=== PATIENT | male | born 1955 | race Caucasian/White ===

== ENCOUNTER → 2020-07-19 14:22 | Outpatient (BNVA) | payer MEDICARE, OTHER, SELFPAY | PROVIDERS: PCP Nurse Practitioner Family; Visit Provider Internal Medicine | DX: L40.50 Arthropathic psoriasis, unspecified (principal); Z79.899 Other long term (current) drug therapy; Z11.59 Encounter for screening for other viral diseases; Z11.1 Encounter for screening for respiratory tuberculosis; D86.9 Sarcoidosis, unspecified; M32.9 Systemic lupus erythematosus, unspecified; M10.9 Gout, unspecified; F17.210 Nicotine dependence, cigarettes, uncomplicated | CPT/HCPCS: 36415; 80053; 84550; 85007; 85025; 85651; 86140; 86480; 86704; 86803; 87340; 99203 ==

== ENCOUNTER 2020-07-24 11:18 | Outpatient (CLI) | payer MEDICARE, OTHER, SELFPAY ==
--- NOTE | 2020-07-24 11:30 | XR_ITS ---
WS: [id number] RIGHT HAND: 2 VIEW(S) TECHNIQUE: PA and lateral. HISTORY: Joint pain. COMPARISON: None available. No acute fracture or dislocation. No soft tissue or bone abnormality. XR/XR hand RT 2V [id number] IMPRESSION: Normal RIGHT hand.
--- NOTE | 2020-07-24 11:30 | XR_ITS ---
WS: [id number] LEFT HAND: 2 VIEW(S) TECHNIQUE: PA and lateral. HISTORY: Joint pain. COMPARISON: None available. No acute fracture or dislocation. No soft tissue or bone abnormality. No periostitis. Dense foreign body adjacent to the proximal first metacarpal. XR/XR hand LT 2V [id number] IMPRESSION: Normal LEFT hand.
--- NOTE | 2020-07-24 11:30 | XR_ITS ---
WS: [id number] RIGHT FOOT: 2 VIEW(S) TECHNIQUE: AP and lateral. HISTORY: Joint pain. COMPARISON: None available. No acute fracture or dislocation. Normal tarsal/metatarsal alignment. Very minimal subchondral cystic changes involving the first metatarsal head. XR/XR foot RT 2V [id number] IMPRESSION: Mild degenerative changes of osteoarthritis at the first metatarsal head.
--- NOTE | 2020-07-24 11:30 | XR_ITS ---
WS: [id number] LEFT FOOT: 2 VIEW(S) TECHNIQUE: AP and lateral. HISTORY: Joint pain. COMPARISON: None available. Moderate degenerative changes at the first metatarsophalangeal joint. The toes are excluded on the la teral radiograph. Normal tarsal/metatarsal alignment. No soft tissue abnormality or bone destruction. XR/XR foot LT 2V [id number] IMPRESSION: Moderate osteoarthritis at the first metatarsophalangeal joint.
--- NOTE | 2020-07-24 11:30 | XR_ITS ---
WS: [id number] Bilateral hips. HISTORY: Joint Pain. Very minimal narrowing of the hip joints and sclerosis along the superior acetabulum. No fractures or dislocations. No bone destruction. XR/XR hip BI 3-4V wo/w pel [id number] IMPRESSION: Mild bilateral hip joint arthritis.
== END 2020-07-24 11:19 | disposition home or self-care (01) ==
LOC: RAD 11:27
PROVIDERS: PCP Nurse Practitioner Family; Visit Provider Internal Medicine
DX: M25.541 Pain in joints of right hand (principal); M25.542 Pain in joints of left hand; M19.072 Primary osteoarthritis, left ankle and foot; M19.071 Primary osteoarthritis, right ankle and foot; M16.0 Bilateral primary osteoarthritis of hip
CPT/HCPCS: 73120; 73522; 73620

== ENCOUNTER 2020-10-23 13:02 | Outpatient (CLI) | payer MEDICARE, OTHER, SELFPAY ==
[2020-10-23 14:38] LABS: Basophils % 0.3 %; Eosinophils % 0.4 %; Hematocrit 50.7 % (42.0-52.0); Hemoglobin 17.1 g/dL (11.7-16.6); Lymphocytes # 1.3 10^3/uL (0.8-4.8); Lymphocytes % 13.7 %; Mean Corpuscular HGB Conc 33.7 g/dL (30.0-36.0); Mean Corpuscular Hemoglobin 30.7 pg (28.0-34.0); Mean Platelet Volume 11.5 fL (7.4-10.4); Monocytes # 0.6 10^3/uL (0.2-0.9); Monocytes % 5.7 %; Neutrophils # 7.76 10^3/uL (1.8-7.7); Neutrophils % 79.3 %; Nucleated Red Blood Cells % 0 %; Platelet Count 171 10^3/cmm (130-400); Red Blood Count 5.57 10^6/uL (4.1-5.3); Red Cell Distribution Width 13.3 % (12.1-15.1); White Blood Count 9.8 10^3/uL (4.0-10.0)
[2020-10-23 15:05] LABS: Alanine Aminotransferase 34 U/L (0-41); Albumin Level 4.2 g/dL (3.5-5.2); Alkaline Phosphatase 68 IU/L (40-130); Blood Urea Nitrogen 14 mg/dL (8-23); Calcium 9.7 mg/dL (8.5-10.5); Carbon Dioxide 27 mmol/L (22-29); Chloride 103 mmol/L (98-107); Globulin 3.1 g/dL (1.3-4.6); Glomerular Filtration Rate 74.5 mL/min (90-130); Glucose 118 mg/dL (65-115); Osmolality Calculated 290 mOsm/kg (285-295); Sodium 139 mmol/L (136-145); Total Bilirubin 0.3 mg/dL (0.15-1.2); Total Protein 7.3 g/dL (6.6-8.7)
[2020-10-23 15:21] LABS: Anion Gap 13.2 (5-19); Aspartate Amino Transferase 26 U/L (0-40); Lactate Dehydrogenase 206 U/L (135-225); Potassium 4.2 mmol/L (3.5-5.1)
[2020-10-23 15:50] LABS: LAB Peripheral Smear Sent for Review
--- NOTE | 2020-10-23 18:21 | ONC CON_ITS ---
Dr. Sheikh New Patient Note Patient: Esvin Hazel Unit #: [id number]: 1955 Dicatated By: Chon Sheikh M.D.Date of Visit: Oct 23, 2020 Onc MED New Patient/Consult Referring Physician: Lupe Wagoner Chief Complaint: Abnormal CBC. History of Present Illness: This is a 65-year-old man with psoriatic arthritis. I am asked to see him in regard to an abnormal CBC. He has longstanding psoriatic arthritis. Has been on multiple therapies over the years including Humira, Cosentyx, and Otezla. He currently has been doing self injections of ixekizumab every 4 weeks. He also has gout and he has degenerative disease of the spine. He has had previous lumbar laminectomy in 2003 and cervical laminectomy in 2004. He has a spinal cord stimulator in place. He had his initial rheumatology consultation with Dr. Wagoner on 07/19/2020. His laboratory studies at that time included CBC showing hemoglobin 16.2 g had hematocrit 49.3%. The white blood cell count was 9000. The reported differential included 38% segs, 2% bands, 47% lymphocytes, 3% atypical lymphs, 9% monocytes, and 1% eosinophils. He was reported to have 2+ smudge cells. Sed rate was normal at 7 mm/hour, and the C-reactive protein was normal 2.9 mg/L. Comprehensive metabolic profile was unremarkable. He has been feeling pretty good generally. He does have limited activity, mainly due to his chronic pain. His ECOG score is 1. He has good appetite. His weight recently has been down a little. He does not have fever or night sweats. He has sinus drainage, has just occasional cough. He does not complain of shortness of breath or chest pain. He was having diarrhea. His bowels now are getting better, though not yet completely back to normal. He has no complaints. He has chronic pain in his neck and lower back, and he also has generalized joint pain. Overall, it has improved significantly with treatment. He does not complain of headache. For the past several years he has had numbness in his right leg. He has no other focal neurologic symptoms. Past Medical History: His medical history includes degenerative disease of the spine, gout, hypertension, and psoriatic arthritis. Past Surgical History: His surgical/procedural history includes appendectomy, placement of implantable spinal cord stimulator, cervical laminectomy in 2004, and lumbar laminectomy in 2003. Medications: Daily Vitamin 1 Tablet Oral daily, Lisinopril 1 (40 mg) Tablet Oral daily, Pantoprazole Sodium 1 (40 mg) Tablet, enteric coated Oral daily, Taltz (80 mg/mL) Subcutaneous Take as Directed Allergies: No Known Allergies. Social History: Mr. Hazel is single. He is a daily smoker. He drinks occasionally. He had previously smoked cigarettes, estimated at 30 years of smoking over a 50-year period, maximum 1-1/2 packs of cigarettes daily. He currently he smokes 2 to 3 cigars/day. He had heavy alcohol use in the past, but he quit drinking many years ago. Family History: Both parents with heart disease, father at age 77 and mother at age 69. One brother and 4 sisters are in good health. Review Of Symptoms: Constitutional - He has pretty good energy, but he does have limited activity tolerance. Appetite is good. His weight recently has been down a little. He has no fever or night sweats. ECOG score is 1, Eyes - No change in vision, ENMT - No hearing loss, but he does have tinnitus. He always has sinus drainage. No mouth sores. No sore throat or difficulty swallowing, Hematologic/Lymphatic - No abnormal bruising or bleeding, Respiratory - No shortness of breath. He has just occasional cough. No pleuritic pain or hemoptysis, Cardiovascular - No angina pain. No palpitations, Gastrointestinal - No nausea or vomiting. He very seldom has acid reflux. He was having diarrhea. It is not yet completely back to normal, but it is getting better. No blood in the stool or black stools, Genitourinary (M) - No dysuria or hematuria. No urinary frequency. No urgency or incontinence, Musculoskeletal - He has chronic pain in his neck and lower back. He also has fairly generalized joint pain, Integumentary - The skin manifestations of his psoriasis have been well controlled on the medication, Neurologic - No headache. He has orthostatic lightheadedness if he gets up too fast. For the past several years he has had numbness in his right leg. No other focal neurologic symptoms, Psychiatric - No anxiety. He occasionally has depression. No insomnia. Vital Signs: Performed on Oct 23, 2020 13:41: 3, 33.26 (HIGH), 2.22 sq.m, 70 in, 95 % (LOW), 77 /min, 18 /min, 154/91 mm(hg) (HIGH), 98.6 F, and 231.8 lbs (HIGH). Physical Examination: Constitutional - He appears to be in good general health, Eyes - Sclerae nonicteric. Conjunctivae clear, ENMT - No lesions noted in the oral cavity, Neck - No mass or thyromegaly, Hematologic/Lymphatic - No cervical, clavicular, or axillary adenopathy, Respiratory - Lungs are clear with good air movement bilaterally, Cardiovascular - Heart rhythm is regular. There is no murmur, gallop, or rub noted, Abdomen - Soft and non-tender. Liver and spleen are not enlarged. There is no abdominal mass or ascites noted and there is no inguinal adenopathy, Extremities - No edema. He has good dorsalis pedis pulses bilaterally, Integumentary - No suspicious skin lesions noted, Neurologic - No focal neurologic deficits noted. Historic Problem List: 1. Longstanding psoriatic arthritis. 2. Degenerative disease of the spine. 3. Gout. 4. Hypertension. 5. GERD. Problems Addressed with this Encounter and Plan: Abnormal CBC with differential reporting atypical lymphocytes and smudge cells. With underlying psoriatic arthritis and immunosuppressive therapy, there is concern for a developing lymphoproliferative disorder. The CBC findings were reviewed with the patient and we discussed the clinic complications. He will have additional laboratory studies today to include CBC, comprehensive metabolic profile, and LDH level. I will review the blood smear. He then will have further evaluation including whole blood flow cytometry and/or bone marrow aspiration/biopsy, as indicated. Signed By: Chon Sheikh M.D. <<Signature on File>>
== END 2020-10-23 13:03 | disposition home or self-care (01) ==
LOC: ONCMED 13:09
PROVIDERS: Internal Medicine Medical Oncology; Visit Provider Internal Medicine Hematology & Oncology
DX: R79.89 Other specified abnormal findings of blood chemistry (principal); L40.50 Arthropathic psoriasis, unspecified; M48.9 Spondylopathy, unspecified; I10 Essential (primary) hypertension; K21.9 Gastro-esophageal reflux disease without esophagitis; F17.210 Nicotine dependence, cigarettes, uncomplicated; Z79.899 Other long term (current) drug therapy
CPT/HCPCS: 36415; 80053; 83615; 85025; 99204

== ENCOUNTER 2021-02-14 09:32 | Outpatient (CLI) | payer MEDICARE, OTHER, SELFPAY ==
[2021-02-14 09:57] VITALS: BMI 31.4
--- NOTE | 2021-02-14 09:57 | ECG_ITS ---
Test Date: 2021-02-14 Pat Name: Esvin Hazel Department: Room: Gender: Male [employer]: : 1955 Requested By: Licha Rader Order Number: [id number] Billie MD: Licha Rader M.D. Interpretive Statements NAME OF STUDY: LEXISCAN SESTAMIBI STRESS TEST INDICATION: Right bundle branch block, CAD PROCEDURE: At the baseline, the blood pressure was 141/78 mmHg, oxygen saturation 98% with a heart rate of 67 bpm. The electrocardiogram showed normal sinus rhythm, normal axis. Right bundle branch block. The Lexiscan was infused over a period of 20 seconds. A total of 0.4 milligrams of Lexiscan was infused. The stress phase was continued for a total of 5 minutes. Heart rate at the end of the stress phase was 88 bpm, oxygen saturation 98% with a blood pressure of 142/81 mmHg. The EKG at the peak infusion revealed sinus rhythm with no significant ST-T wave changes. Sestamibi was injected 20 seconds after the Lexiscan infusion. Blood pressure at the end of the recovery phase was 159/82 mmHg, oxygen saturation 97% with a heart rate of 91 beats per minute. CONCLUSION: 1. No significant EKG changes with the LexiScan infusion. 2. No LexiScan induced chest pain or cardiac arrhythmia. 3. Normal blood pressure and heart rate response. 4. Sestamibi/sestamibi perfusion scan pending; see separate report. Electronically Signed On 02-16-2021 13:40:16 CDT by Licha Rader M.D. [id number]
--- NOTE | 2021-02-14 09:57 | NMCV_ITS ---
NM michel perf SPECT r/s* [id number] Esvin Hazel Age: 65 Gender: M : 1955 Exam Date: 02/14/2021 10:49 Ordering Phys: Licha Rader MD ([email or web address]) Technologist: KERRIE Dixon Exam Location: [facility] Indications: RIGHT BUNDLE BRANCH BLOCK STRESS TEST [facility] IMAGE PROTOCOL Rest/Stress 1 Lexiscan Day Radiopharmaceutical Dose (mCi) Administration Site Administered by Rest: Tc-99m 11.0 IV KERRIE Diaz Sestamibi Stress:Tc-99m 32.2 IV KERRIE Diaz Sestamibi Rest: 14-Feb-2021 60 Discovery 630 Stress: 14-Feb-2021 30 Discovery 630 0.4mg Lexiscan. Images obtained in supine and prone position. SPECT RESULTS Technical Quality: Excellent Raw Data Analysis: Normal Image Corrections: No attenuation or motion correction applied Summed Stress Score: 0 Summed Rest Score: 2 Summed Difference Score: 0 PERFUSION FINDINGS Small sized perfusion abnormality of mild severity of mid to apical inferior and apical guo on rest images with increased tracer uptake on stress images. FUNCTIONAL RESULTS (calculated via Gated SPECT) Stress Image LV EF (%): 75 Stress EDV (mL):76 TID: 0.83 Stress ESV (mL):19 FUNCTIONAL FINDINGS: The left ventricle is normal in size. Transient Ischemia Dilatation of 0.83. There is normal left ventricular systolic function. The left ventricular ejection fraction is normal with a value of 75%. There is normal left ventricular wall thickening with no regional wall motion abnormality. Normal end-diastolic and end-systolic volumes. IMPRESSIONS 1. Small sized perfusion abnormality of mild severity of mid to apical inferior and apical guo with improved tracer uptake on stress images. 2. This likely represents attenuation artifact, however small area of old myocardial infarction in apical inferior and apical lateral guo cannot be completely ruled out. 3. Overall left ventricular systolic function is normal without regional wall motion abnormalities, LVEF=75%. 4. No significant coronary ischemia based on the study. Licha Rader MD (Electronically Signed) Final Date: 16 Feb 2021 13:17 S
[2021-02-14] MEDS: regadenoson 0.4 Mg/5 ml Syringe IVP (12:02)
[2021-02-14 12:03] VITALS: BP 159/82; PULSE 88
== END 2021-02-14 09:33 | disposition home or self-care (01) ==
LOC: CDL 09:33
PROVIDERS: Visit Provider Internal Medicine Cardiovascular Disease
DX: I45.10 Unspecified right bundle-branch block (principal); I25.10 Atherosclerotic heart disease of native coronary artery without angina pectoris
CPT/HCPCS: 78452; 93017; A9500; J2785

== ENCOUNTER → 2021-03-20 13:37 | Outpatient (BNVA) | payer MEDICARE, OTHER, SELFPAY | PROVIDERS: Visit Provider Orthopaedic Surgery | DX: M25.569 Pain in unspecified knee (principal) | CPT/HCPCS: 73560; 73565 ==

== ENCOUNTER → 2021-04-12 13:24 | Outpatient (BNVA) | payer MEDICARE, OTHER, SELFPAY | PROVIDERS: Referring Provider Orthopaedic Surgery; Visit Provider Anesthesiology Pain Medicine | DX: G89.29 Other chronic pain (principal); M25.551 Pain in right hip; M25.552 Pain in left hip; M17.11 Unilateral primary osteoarthritis, right knee; M51.16 Intervertebral disc disorders with radiculopathy, lumbar region; M96.1 Postlaminectomy syndrome, not elsewhere classified; Z79.891 Long term (current) use of opiate analgesic | CPT/HCPCS: 99205 ==

== ENCOUNTER → 2021-04-25 13:12 | Outpatient (BNVA) | payer MEDICARE, OTHER, SELFPAY | PROVIDERS: Visit Provider Anesthesiology Pain Medicine | DX: M25.551 Pain in right hip (principal) | CPT/HCPCS: 20610; 77002; J1030; J3490 ==

== ENCOUNTER → 2021-05-09 10:16 | Outpatient (BNVA) | payer MEDICARE, OTHER, SELFPAY | PROVIDERS: Visit Provider Anesthesiology Pain Medicine | DX: M51.16 Intervertebral disc disorders with radiculopathy, lumbar region (principal); M96.1 Postlaminectomy syndrome, not elsewhere classified; M25.552 Pain in left hip; M25.551 Pain in right hip; M17.11 Unilateral primary osteoarthritis, right knee; M79.659 Pain in unspecified thigh | CPT/HCPCS: 99214 ==

== ENCOUNTER 2021-05-21 15:08 | Outpatient (CLI) | payer MEDICARE, OTHER, SELFPAY ==
--- NOTE | 2021-05-21 15:30 | CT_ITS ---
WS: [id number] CT CERVICAL SPINE HISTORY: R92.8 - Other abnormal and inconclusive findings TECHNIQUE: Contiguous 2.5 mm axial imaging performed through the entire cervical spine. Sagittal and coronal reformats also performed. All CT scans at [facility] use at least one of these do se optimization techniques: automated exposure control; mA and/or kV adjustment per patient size (inc ludes targeted exams where dose is matched to clinical indication); or iterative reconstruction. DLP: 1893.71 mGy-cm. COMPARISON: None available. Straightening and reversal normal cervical lordosis. Severe degenerative disc disease with osteophyto sis and sclerosis from C4-5 through C6-7. Osteophytes extend anterior and posterior. C3 anterolisthes is by 3 mm and C4 and C5 retrolisthesis by 2 mm. No fractures. Craniocervical junction normally align ed. Lateral masses of C1 and C2 are aligned. C2-C3: Shallow central disc protrusion with moderate RIGHT facet joint hypertrophy. Moderate RIGHT fo raminal narrowing. C3-C4: Diffuse osteophytic ridging with moderate to severe RIGHT facet joint arthritis. Moderate RIGH T foraminal stenosis. C4-C5: Diffuse osteophytic ridging and mild disc bulging with bilateral facet joint arthritis. Suspec t there is a small disc protrusion in the proximal LEFT foramen. Severe LEFT and moderate RIGHT tushar inal stenosis. C5-C6: Diffuse osteophytic ridging and facet joint arthritis. Severe bilateral foraminal stenosis. C6-C7: Diffuse osteophytic ridging with mild encroachment upon the ventral thecal sac. Moderate centr al and bilateral foraminal stenosis. C7-T1: Mild LEFT foraminal stenosis. Small bilateral cervical chain lymph nodes. CT/CT cervical spin wo con* [id number] IMPRESSION: 1. Severe spondylitic changes at C4-5, C5-6 and C6-7. 2. Moderate RIGHT foraminal stenosis at C2-3 and C3-4 due to facet joint arthr itis. 3. Severe LEFT and moderate RIGHT foraminal stenosis at C4-5. Indeterminate fo r small disc protrusion on the LEFT. 4. Moderate central and bilateral foraminal stenosis at C6-7. 5. Severe bilateral foraminal stenosis at C5-6.
== END 2021-05-21 15:09 | disposition home or self-care (01) ==
PROVIDERS: Visit Provider Anesthesiology Pain Medicine
DX: M96.1 Postlaminectomy syndrome, not elsewhere classified (principal); M48.02 Spinal stenosis, cervical region
CPT/HCPCS: 72125

== ENCOUNTER → 2021-06-06 10:00 | Outpatient (BNVA) | payer MEDICARE, OTHER, SELFPAY | PROVIDERS: Visit Provider Anesthesiology Pain Medicine | DX: G89.29 Other chronic pain (principal); M47.812 Spondylosis without myelopathy or radiculopathy, cervical region; M96.1 Postlaminectomy syndrome, not elsewhere classified; M17.11 Unilateral primary osteoarthritis, right knee; M25.551 Pain in right hip; M25.552 Pain in left hip; M51.16 Intervertebral disc disorders with radiculopathy, lumbar region; M79.659 Pain in unspecified thigh; F17.210 Nicotine dependence, cigarettes, uncomplicated | CPT/HCPCS: 99214 ==

== ENCOUNTER → 2021-06-13 12:35 | Outpatient (BNVA) | payer MEDICARE, OTHER, SELFPAY | PROVIDERS: Visit Provider Anesthesiology Pain Medicine | DX: G89.29 Other chronic pain (principal); M47.812 Spondylosis without myelopathy or radiculopathy, cervical region; F17.210 Nicotine dependence, cigarettes, uncomplicated | CPT/HCPCS: 64490; 64491; 64492; J3490 ==

== ENCOUNTER → 2021-06-27 10:50 | Outpatient (BNVA) | payer MEDICARE, OTHER, SELFPAY | PROVIDERS: Visit Provider Anesthesiology Pain Medicine | DX: G89.29 Other chronic pain (principal); M47.812 Spondylosis without myelopathy or radiculopathy, cervical region; M51.16 Intervertebral disc disorders with radiculopathy, lumbar region; M96.1 Postlaminectomy syndrome, not elsewhere classified; M17.11 Unilateral primary osteoarthritis, right knee; M25.551 Pain in right hip; F17.210 Nicotine dependence, cigarettes, uncomplicated | CPT/HCPCS: 99214 ==

== ENCOUNTER → 2021-07-10 14:43 | Outpatient (BNVA) | payer MEDICARE, OTHER, SELFPAY | PROVIDERS: Visit Provider Anesthesiology Pain Medicine | DX: G89.29 Other chronic pain (principal); M47.812 Spondylosis without myelopathy or radiculopathy, cervical region; F17.290 Nicotine dependence, other tobacco product, uncomplicated | CPT/HCPCS: 64633; 64634 ==

== ENCOUNTER → 2021-07-24 10:40 | Outpatient (BNVA) | payer MEDICARE, OTHER, SELFPAY | PROVIDERS: Visit Provider Anesthesiology Pain Medicine | DX: G89.29 Other chronic pain (principal); M47.812 Spondylosis without myelopathy or radiculopathy, cervical region; M51.16 Intervertebral disc disorders with radiculopathy, lumbar region; M96.1 Postlaminectomy syndrome, not elsewhere classified; M17.11 Unilateral primary osteoarthritis, right knee; M25.551 Pain in right hip; M25.552 Pain in left hip; M79.652 Pain in left thigh; I10 Essential (primary) hypertension; F17.210 Nicotine dependence, cigarettes, uncomplicated | CPT/HCPCS: 99214 ==

== ENCOUNTER → 2021-07-30 12:49 | Outpatient (BNVA) | payer MEDICARE, OTHER, SELFPAY | PROVIDERS: Visit Provider Anesthesiology Pain Medicine | DX: G89.29 Other chronic pain (principal); M47.812 Spondylosis without myelopathy or radiculopathy, cervical region; F17.290 Nicotine dependence, other tobacco product, uncomplicated | CPT/HCPCS: 64490; 64491; 64492; J3490 ==

== ENCOUNTER 2021-08-02 11:42 | Outpatient (CLI) | payer MEDICARE, OTHER, SELFPAY ==
[2021-08-02 12:31] LABS: Basophils % 0.4 %; Eosinophils # 0.2 10^3/uL (0.0-0.8); Hemoglobin 15.6 g/dL (11.7-16.6); Lymphocytes # 1.9 10^3/uL (0.8-4.8); Lymphocytes % 23.8 %; Mean Corpuscular HGB Conc 32.5 g/dL (30.0-36.0); Mean Corpuscular Hemoglobin 30.6 pg (28.0-34.0); Mean Corpuscular Volume 94.3 fl (80-94); Mean Platelet Volume 11.1 fL (7.4-10.4); Monocytes # 0.5 10^3/uL (0.2-0.9); Monocytes % 6.1 %; Neutrophils # 5.49 10^3/uL (1.8-7.7); Neutrophils % 67.3 %; Nucleated Red Blood Cells % 0 %; Platelet Count 148 10^3/cmm (130-400); Red Blood Count 5.09 10^6/uL (4.1-5.3); Red Cell Distribution Width 13.8 % (12.1-15.1); White Blood Count 8.2 10^3/uL (4.0-10.0)
[2021-08-02 13:11] LABS: Alanine Aminotransferase 30 U/L (0-41); Alkaline Phosphatase 64 IU/L (40-130); Anion Gap 14.2 (5-19); Aspartate Amino Transferase 24 U/L (0-40); Blood Urea Nitrogen 13 mg/dL (8-23); C Reactive Protein 3.4 mg/L (0.0-4.9); Calcium 9.2 mg/dL (8.5-10.5); Carbon Dioxide 27 mmol/L (22-29); Chloride 103 mmol/L (98-107); Globulin 2.4 g/dL (1.3-4.6); Glomerular Filtration Rate 83.9 mL/min (90-130); Glucose 103 mg/dL (65-115); Osmolality Calculated 290 mOsm/kg (285-295); Potassium 4.2 mmol/L (3.5-5.1); Sodium 140 mmol/L (136-145); Total Bilirubin 0.3 mg/dL (0.15-1.2); Total Protein 6.4 g/dL (6.6-8.7)
[2021-08-03 15:54] LABS: Erythrocyte Sedimentation Rate 5 mm/hr (0-10)
== END 2021-08-02 11:43 | disposition home or self-care (01) ==
LOC: LAB 11:49
PROVIDERS: PCP Internal Medicine; Visit Provider Internal Medicine
DX: L40.50 Arthropathic psoriasis, unspecified (principal); M10.9 Gout, unspecified; M17.11 Unilateral primary osteoarthritis, right knee; M47.812 Spondylosis without myelopathy or radiculopathy, cervical region; Z79.899 Other long term (current) drug therapy
CPT/HCPCS: 80053; 85025; 85651; 86140

== ENCOUNTER → 2021-08-07 13:35 | Outpatient (BNVA) | payer MEDICARE, OTHER, SELFPAY | PROVIDERS: PCP Internal Medicine; Visit Provider Internal Medicine | DX: L40.50 Arthropathic psoriasis, unspecified (principal); M10.9 Gout, unspecified; F17.290 Nicotine dependence, other tobacco product, uncomplicated | CPT/HCPCS: 99214 ==

== ENCOUNTER → 2021-08-13 10:47 | Outpatient (BNVA) | payer MEDICARE, OTHER, SELFPAY | PROVIDERS: PCP Internal Medicine; Visit Provider Anesthesiology Pain Medicine | DX: G89.29 Other chronic pain (principal); M47.812 Spondylosis without myelopathy or radiculopathy, cervical region; M51.16 Intervertebral disc disorders with radiculopathy, lumbar region; M25.551 Pain in right hip; M25.552 Pain in left hip; M17.11 Unilateral primary osteoarthritis, right knee; M79.659 Pain in unspecified thigh | CPT/HCPCS: 99214 ==

== ENCOUNTER → 2021-08-29 13:43 | Outpatient (BNVA) | payer MEDICARE, OTHER, SELFPAY | PROVIDERS: PCP Internal Medicine; Visit Provider Anesthesiology Pain Medicine | DX: M47.812 Spondylosis without myelopathy or radiculopathy, cervical region (principal); M96.1 Postlaminectomy syndrome, not elsewhere classified; M54.50 Low back pain, unspecified | CPT/HCPCS: 64633; 64634; J1030 ==

== ENCOUNTER → 2021-09-20 10:31 | Outpatient (BNVA) | payer MEDICARE, OTHER, SELFPAY | PROVIDERS: PCP Internal Medicine; Visit Provider Anesthesiology Pain Medicine | DX: G89.29 Other chronic pain (principal); M47.812 Spondylosis without myelopathy or radiculopathy, cervical region; M96.1 Postlaminectomy syndrome, not elsewhere classified; M25.551 Pain in right hip; M25.552 Pain in left hip; M17.11 Unilateral primary osteoarthritis, right knee; M51.16 Intervertebral disc disorders with radiculopathy, lumbar region; M79.659 Pain in unspecified thigh; M19.90 Unspecified osteoarthritis, unspecified site; Z79.891 Long term (current) use of opiate analgesic | CPT/HCPCS: 99214 ==

== ENCOUNTER 2021-10-10 11:16 | Outpatient (CLI) | payer MEDICARE, OTHER, SELFPAY ==
--- NOTE | 2021-10-10 11:23 | XR_ITS ---
WS: [id number] Upright AP knees. HISTORY: Chronic knee pain. COMPARISON: 03/20/2021. Very minimal narrowing of the medial compartments of each knee. No subluxation. No osseous destructio n or osteophytosis. No significant valgus or varus deformity. [place]R/[place] [id number] IMPRESSION: Minimal medial compartment narrowing, similar to the prior study. No progressio n or significant osteoarthritis.
== END 2021-10-10 11:17 | disposition home or self-care (01) ==
PROVIDERS: PCP Internal Medicine; Visit Provider Anesthesiology Pain Medicine
DX: M25.561 Pain in right knee (principal); M25.562 Pain in left knee; G89.29 Other chronic pain
CPT/HCPCS: 73565

== ENCOUNTER → 2021-10-17 10:36 | Outpatient (BNVA) | payer MEDICARE, OTHER, SELFPAY | PROVIDERS: PCP Internal Medicine; Visit Provider Anesthesiology Pain Medicine | DX: G89.29 Other chronic pain (principal); M51.16 Intervertebral disc disorders with radiculopathy, lumbar region; M96.1 Postlaminectomy syndrome, not elsewhere classified; M47.812 Spondylosis without myelopathy or radiculopathy, cervical region; M17.11 Unilateral primary osteoarthritis, right knee; M25.551 Pain in right hip; M25.552 Pain in left hip; M19.90 Unspecified osteoarthritis, unspecified site; Z79.891 Long term (current) use of opiate analgesic | CPT/HCPCS: 99214 ==

== ENCOUNTER → 2022-01-16 12:53 | Outpatient (BNVA) | payer MEDICARE, OTHER, SELFPAY | PROVIDERS: PCP Internal Medicine; Visit Provider Internal Medicine | DX: L40.50 Arthropathic psoriasis, unspecified (principal); M10.9 Gout, unspecified; Z79.899 Other long term (current) drug therapy; F17.290 Nicotine dependence, other tobacco product, uncomplicated | CPT/HCPCS: 80053; 84550; 85025; 85651; 86140; 99214 ==

== ENCOUNTER → 2022-01-17 10:09 | Outpatient (BNVA) | payer MEDICARE, OTHER, SELFPAY | PROVIDERS: PCP Internal Medicine; Visit Provider Internal Medicine | DX: M19.041 Primary osteoarthritis, right hand (principal); M19.072 Primary osteoarthritis, left ankle and foot | CPT/HCPCS: 73120; 73600; 73620 ==

== ENCOUNTER → 2022-06-24 13:41 | Outpatient (BNVA) | payer MEDICARE, OTHER, SELFPAY | PROVIDERS: PCP Internal Medicine; Visit Provider Internal Medicine | DX: L40.50 Arthropathic psoriasis, unspecified (principal); M10.9 Gout, unspecified | CPT/HCPCS: 99214 ==

== ENCOUNTER → 2022-07-03 10:14 | Outpatient (BNVA) | payer MEDICARE, OTHER, SELFPAY | PROVIDERS: PCP Internal Medicine; Visit Provider Internal Medicine | DX: L40.50 Arthropathic psoriasis, unspecified (principal); M54.12 Radiculopathy, cervical region | CPT/HCPCS: 80053; 85025; 85651; 86140 ==

== ENCOUNTER → 2022-07-30 13:38 | Outpatient (BNVA) | payer MEDICARE, OTHER, SELFPAY | PROVIDERS: PCP Internal Medicine; Visit Provider Specialist | DX: R42 Dizziness and giddiness (principal); F17.200 Nicotine dependence, unspecified, uncomplicated; L40.50 Arthropathic psoriasis, unspecified; I25.10 Atherosclerotic heart disease of native coronary artery without angina pectoris | CPT/HCPCS: 99204; 99205 ==

== ENCOUNTER 2022-08-12 14:58 | Outpatient (CLI) | payer MEDICARE, OTHER, SELFPAY ==
--- NOTE | 2022-08-12 15:00 | CT_ITS ---
WS: [id number] CT HEAD TECHNIQUE: Noncontrast CT of the head obtained from the skullbase to the vertex. CLINICAL INFORMATION: M54.12 - Radiculopathy, cervical region COMPARISON: None. DLP: 1132.[address] scans at [facility] use at least one of these dose optimization techniques: automated e xposure control; mA and/or kV adjustment per patient size (includes targeted exams where dose is matc hed to clinical indication); or iterative reconstruction. FINDINGS: No evidence of intracranial hemorrhage or mass effect. Ventricular system and basal cisterns are neil nt. Mild small vessel changes with mild parenchymal volume loss. No extra-axial fluid collections. Pr ominent vessel in the RIGHT frontal horn periventricular white matter likely incidental venous angiom a. Mild mucosal thickening RIGHT mastoid tip. LEFT mastoid air cells are well aerated. Paranasal sinuses are well aerated. Mild mucosal thickening in the ethmoid air cells. CT/CT head wo con* [id number] IMPRESSION: 1. No evidence of intracranial hemorrhage or mass effect 2. Mild small vessel changes with mild parenchymal volume loss. 3. Prominent vessel in the RIGHT frontal horn periventricular white matter lik subhash incidental venous angioma.
--- NOTE | 2022-08-12 15:30 | CT_ITS ---
WS: [id number] CT CERVICAL SPINE TECHNIQUE: Noncontrast CT of the cervical spine with coronal and sagittal reformatted images. CLINICAL INFORMATION: M54.12 - Radiculopathy, cervical region COMPARISON: CT May 21, 2021 DLP: 375.[address] scans at [facility] use at least one of these dose optimization techniques: automated e xposure control; mA and/or kV adjustment per patient size (includes targeted exams where dose is matc hed to clinical indication); or iterative reconstruction. FINDINGS: Straightening with slight reversal normal cervical lordosis. Disc space narrowing worse at C4-C5 C5-C 6 and C6-C7 with endplate degenerative changes. Associated osteophytes. Subchondral cystic change. Al ignment is unchanged since May 31, 2021. Slight anterolisthesis C3 on C4 is unchanged. C2-C3: Mild disc osteophytic ridging. Advanced RIGHT facet arthropathy. Moderate RIGHT bony foraminal narrowing. Spinal canal is patent. C3-C4: Disc osteophyte complex with endplate ridging. Advanced RIGHT facet arthropathy. Severe RIGHT bony foraminal narrowing. LEFT foramen is patent. Spinal canal is patent. C4-C5: Disc osteophyte complex with disc space narrowing. Mild central canal stenosis. Moderate to se noemy LEFT and moderate RIGHT bony foraminal narrowing. Mild facet arthropathy. Uncovertebral joint hy pertrophy. C5-C6: Disc osteophyte complex with endplate ridging. Mild central canal stenosis. Severe LEFT and mo derate RIGHT bony foraminal narrowing. Mild central canal stenosis. Moderate facet arthropathy. C6-C7: Disc osteophyte complex with endplate ridging. Mild central canal stenosis. Mild bilateral bon y foraminal narrowing. C7-T1: No significant disc bulging. Mild LEFT and no significant RIGHT bony foraminal narrowing. Visualized posterior nasopharynx: Normal. Prevertebral soft tissues: Normal. Lung apices are well aerated. Mild mucosal thickening RIGHT mastoid air cells. LEFT mastoid air cells are well aerated. CT/CT cervical spin wo con* [id number] IMPRESSION: 1. Overall no significant changes since 2020. 2. Straightening of the normal cervical lordosis with slight reversal. Disc sp dilcia narrowing worse at C4-C6 with endplate degenerative changes and hypertrophi c spurring. 3. Mild central canal stenosis C4-C5, C5-C6, and C6-C7 unchanged. 4. Moderate to severe bony foraminal narrowing worse at RIGHT C3-C4, LEFT C4-C 5, LEFT C5-C6. 5. Moderate RIGHT C2-C3 bony foraminal narrowing. Advanced facet arthropathy R IGHT C2-C3 and RIGHT C3-C4. Mild to moderate facet arthropathy C5-C6.
== END 2022-08-12 14:59 | disposition home or self-care (01) ==
PROVIDERS: PCP Internal Medicine; Visit Provider Specialist
DX: M54.12 Radiculopathy, cervical region (principal); R42 Dizziness and giddiness; M48.02 Spinal stenosis, cervical region; M47.812 Spondylosis without myelopathy or radiculopathy, cervical region
CPT/HCPCS: 70450; 72125

== ENCOUNTER 2022-09-18 12:32 | Outpatient (CLI) | payer MEDICARE, OTHER, SELFPAY ==
--- NOTE | 2022-09-18 13:00 | USCV_ITS ---
Esvin Benítez Age: 67 Gender: M : 1955 Exam Date: 09/18/2022 12:56 Ordering Phys: Clarice Harrison MD Technologist: MARIYA Exam Location: [facility] Indication: RADICULOPATHY, CERVICAL REGION BP: 135 / 88 HR: 71 Rhythm: Sinus Technical Quality: Adequate MEASUREMENTS (Male / Female) Normal Values 2D ECHO LVOT Diameter 2.0 cm LV Ejection Fraction MOD 2C 59.3 % LV Ejection Fraction 2C AL 59.6 % LA Diameter 3.3 cm LA Width 3.5 cm LA Height 4.9 cm RA Width 3.7 cm RA Height 4.8 cm Aorta at Sinotubular Diameter 2.5 cm IVC Diameter 2.1 cm M-MODE Aortic Annulus Diameter 2.5 cm LA Ao Ratio MM 1.2 DOPPLER AV Peak Velocity 140.0 cm/s LVOT Peak Velocity 116.0 cm/s AV Area Cont Eq vti 2.7 cm squared AV Area Cont Eq pk 2.6 cm squared MV Peak Velocity 108.0 cm/s MV Area PHT 3.4 cm squared Mitral E to A Ratio 0.9 MV E' Velocity 40.0 cm/s Mitral E to MV E' Ratio 6.4 Mitral E to LV E' Lateral Ratio 6.1 Mitral E to LV E' Septal Ratio 6.7 TR Peak Velocity 186.9 cm/s TR Peak Gradient 14.0 mmHg TR Mean Velocity 145.0 cm/s TR Mean Gradient 9.2 mmHg TR Velocity Time Integral 48.9 cm TV Peak E Velocity 51.0 cm/s Right Atrial Pressure 3.0 mmHg Pulmonary Artery Systolic Pressu 17.0 mmHg FINDINGS Left Ventricle Left ventricle is normal in size. LV systolic function is normal with EF of 55 to 60%. No regional wall motion abnormalities are seen. Grade 1 diastolic dysfunction Right Ventricle Normal in size and function Right Atrium Normal in size Left Atrium Normal in size. Bubble study is negative for intracardiac shunting Mitral Valve Mild mitral annular calcification. Mild mitral regurgitation Aortic Valve Structurally normal aortic valve. No significant stenosis or regurgitation. Tricuspid Valve Trace tricuspid regurgitation. Pulmonary artery systolic pressure normal Pulmonic Valve Not well-visualized Pericardium Normal Aorta Normal in size IVC Not well visualized CONCLUSIONS LV systolic function is normal with EF of 55-60% Grade 1 diastolic dysfunction Mild mitral regurgitation Trace tricuspid regurgitation Bubble study is negative for intracardiac shunting No comparison studies are available Amilcar De La Rosa MD (Electronically Signed) Final Date: 02 October 2022 17:50 S
[2022-09-18 13:15] LABS: Blood Urea Nitrogen 12 mg/dL (8-23); Glomerular Filtration Rate 66.4 mL/min (90-130)
--- NOTE | 2022-09-18 14:00 | CT_ITS ---
WS: [id number] CTA HEAD AND NECK TECHNIQUE: Contrast enhanced CTA of the head and neck with coronal and sagittal reformatted images an d maximum intensity projection (MIP) images. NASCET criteria utilized. CLINICAL INFORMATION: G45.9 - Transient cerebral ischemic attack, unspecified COMPARISON: None. DLP: 1815.[address] scans at [facility] use at least one of these dose optimization techniques: automated e xposure control; mA and/or kV adjustment per patient size (includes targeted exams where dose is matc hed to clinical indication); or iterative reconstruction. FINDINGS: Noncontrast head appears normal. No evidence of intracranial hemorrhage or mass effect. Mil d small vessel changes. Mild parenchymal volume loss. Incidental benign venous angioma along the RIGH T frontal horn. LEFT mastoid air cells well aerated. Mild mucosal thickening RIGHT mastoid tip. Mild mucosal thickening paranasal sinuses. Normal posterior nasopharynx. Normal parapharyngeal fat. RIGHT: RIGHT common carotid artery is patent. Mild calcified atheromatous plaque RIGHT carotid bulb e xtending into the ICA. No significant RIGHT ICA stenosis. ICA is patent to the skull base. LEFT: LEFT common carotid artery is patent. No significant LEFT ICA stenosis. Mild atheromatous plaqu e LEFT carotid bulb extending into the ICA. LEFT ICA is patent to the skull base. INTRACRANIAL CTA: Codominant and patent vertebral arteries bilaterally. Proximal basilar artery is patent. Normal vascu larity to the [employer] territory bilaterally. Both ICAs are patent at the skull base. Normal vascularity to the ARELIS and MCA territories bilaterally . No evidence of proximal flow limiting stenosis. Moderate atheromatous disease aortic arch. Proximal subclavian arteries are patent. Lung apices are w ell aerated. Reversal normal cervical lordosis. Advanced spondylitic changes cervical spine with disc space narrowing C4-C6 with endplate degenerative changes. Slight anterolisthesis C3 on C4. CT/CT angio headneck* [id number] IMPRESSION: 1. Less than 50% ICA stenosis bilaterally with mild calcified atheromatous dis ease. 2. Codominant and patent vertebral arteries bilaterally. 3. No flow-limiting intracranial stenosis. Unremarkable intracranial CTA. 4. Incidental benign venous angioma in the RIGHT frontal periventricular white matter. 5. Advanced spondylitic changes cervical spine with reversal normal cervical l ordosis. 6. Disc space narrowing C4-C6 with endplate degenerative changes.
[2022-09-18] MEDS: iohexol 350 mg/mL 500 mL Btl (per mL) IV (14:21)
[2022-09-18 14:54] LABS: Vitamin B12 486 pg/mL (232-1245)
[2022-09-18 15:21] LABS: Folate Level > 20.0 ng/mL (4.5-32.2)
== END 2022-09-18 12:33 | disposition home or self-care (01) ==
LOC: RAD 12:33
PROVIDERS: Radiology Diagnostic Radiology; PCP Internal Medicine; Visit Provider Specialist
DX: G45.9 Transient cerebral ischemic attack, unspecified (principal); M54.12 Radiculopathy, cervical region; R42 Dizziness and giddiness; M48.02 Spinal stenosis, cervical region
CPT/HCPCS: 36415; 70496; 70498; 82565; 82607; 82746; 84520; C8929; Q9967

== ENCOUNTER → 2022-12-24 14:48 | Outpatient (BNVA) | payer MEDICARE, OTHER, SELFPAY | PROVIDERS: PCP Internal Medicine; Visit Provider Specialist | DX: M47.12 Other spondylosis with myelopathy, cervical region (principal); R42 Dizziness and giddiness; I65.23 Occlusion and stenosis of bilateral carotid arteries; F17.210 Nicotine dependence, cigarettes, uncomplicated | CPT/HCPCS: 99214 ==

== ENCOUNTER → 2023-02-11 12:34 | Outpatient (BNVA) | payer MEDICARE, OTHER, SELFPAY | PROVIDERS: PCP Internal Medicine; Visit Provider Internal Medicine Cardiovascular Disease | DX: I10 Essential (primary) hypertension (principal); F17.200 Nicotine dependence, unspecified, uncomplicated; I45.10 Unspecified right bundle-branch block; L40.50 Arthropathic psoriasis, unspecified; E78.5 Hyperlipidemia, unspecified; M25.551 Pain in right hip | CPT/HCPCS: 99213 ==